=== PATIENT | male | born 1945 ===

== ENCOUNTER 2019-02-19 10:27 | Day surgery (SDC) | payer MEDICARE, OTHER ==
[~2019-02-19] VITALS: Ht 176.5 cm; Wt 125.6 kg
[~2019-02-19 10:27] MED LIST: PRED20TA PO
[2019-02-19] MEDS ORDERED: diphenhydrAMINE 25mg capsule PO ONE (10:55)
[2019-02-19] MEDS ORDERED: normal saline 1000ml 1,000 ML IV SCH (10:55)
[2019-02-19] MEDS ORDERED: EZET10TA48 PO (11:33)
[2019-02-19] MEDS ORDERED: CLOP75TA35 PO (11:33)
[2019-02-19] MEDS ORDERED: LIRA0.6P SUBCUT (11:33)
[2019-02-19] MEDS ORDERED: METF750T46 PO (11:33)
[2019-02-19] MEDS ORDERED: METO-411 PO (11:33)
[2019-02-19] MEDS ORDERED: ATOR40TA72 PO (11:33)
[2019-02-19] MEDS ORDERED: NITR0.4T48 SL (11:33)
[2019-02-19 12:00] LABS: BASOPHILS # (AUTO) 0.1 X10'3 (0-0.2); BASOPHILS % (AUTO) 0.8 % (0-1); EOSINOPHILS # (AUTO) 0.4 X10'3 (0-0.9); EOSINOPHILS % (AUTO) 3.8 % (0-6); HEMATOCRIT 45.7 % (42.0-52.0); HEMOGLOBIN 15.8 g/dl (14.0-17.9); LYMPHOCYTES # (AUTO) 2.2 X10'3 (1.1-4.8); LYMPHOCYTES % (AUTO) 20.9 % (21-51); MEAN CORPUSCULAR HEMOGLOBIN 31.6 PG (27.0-31.0); MEAN CORPUSCULAR HGB CONC 34.6 g/dL (33.0-36.5); MEAN CORPUSCULAR VOLUME 91.5 FL (78-98); MONOCYTES % (AUTO) 9.3 % (2-12); NEUTROPHILS # (AUTO) 6.9 X10'3 (1.8-7.7); NEUTROPHILS % (AUTO) 65.2 % (42-75); PLATELET COUNT 307 X10'3 (140-440); RED CELL DISTRIBUTION WIDTH 13.4 % (11.5-14.5); WHITE BLOOD COUNT 10.6 X10'3 (4.5-11.0)
[2019-02-19] MEDS ORDERED: fentaNYL/PF 50MCG/1 ML 2ML syringe ONE ×2 (12:03→13:33)
[2019-02-19] MEDS ORDERED: iohexol 350MG/ML 100ml bottle IV ONE ×4 (12:03→14:20)
[2019-02-19] MEDS ORDERED: midazolam 2 mg/2 ml injection ONE ×4 (12:03→14:17)
[2019-02-19] MEDS ORDERED: iohexol 350 MG/ML 50ML vial IV ONE (12:03)
[2019-02-19] MEDS ORDERED: LIDOcaine 1% (10mg/ml)w/preservative injection 20ml MDV ONE ×2 (12:03→13:32)
[2019-02-19 12:09] LABS: ALBUMIN 3.5 G/DL (3.4-5.0); ANION GAP 8 (8-16); BLOOD UREA NITROGEN 11 MG/DL (7-18); BUN/CREATININE RATIO 10.6 (5.4-32.0); CALCIUM 8.3 MG/DL (8.5-10.1); CHLORIDE 104 MMOL/L (99-107); CREATININE 1.04 MG/DL (0.60-1.10); GLUCOSE 136 MG/DL (70-104); MAGNESIUM 1.8 MG/DL (1.5-2.4); SODIUM 138 MMOL/L (135-145); TOTAL CARBON DIOXIDE 26.2 MMOL/L (24-32); eGFR 70 ML/MIN
[2019-02-19] MEDS ORDERED: heparin 1,000unit/ml 10ml vial 10 ML ONE ×2 (12:49→13:46)
[2019-02-19] MEDS ORDERED: nitroGLYCERIN 0.4mg SUBLingual tab SL ONE (13:25)
[2019-02-19] MEDS ORDERED: iohexol 350 MG/1 ML 200ml bottle ONE (13:32)
[2019-02-19] MEDS ORDERED: ondansetron/PF 4mg/2ml inj ONE (13:35)
[2019-02-19] MEDS ORDERED: tirofiban 5mg in NS 100mL 100 ML IV ONE (14:13)
[2019-02-19] MEDS ORDERED: clopidogrel 300mg tablet ONE (14:48)
[2019-02-19 15:00] VITALS: BP 130/85
[2019-02-19 15:15] VITALS: BP 105/69
--- NOTE | 2019-02-19 15:19 | NUR ---
Patient back from OR via gurney. VSS, denies any cp or sob at this time. Right groin with Perclose. Groin soft without hematoma or bleeding. Bilat pedal pulses palpable and strong. Aggrastat running from OR until empty. NS @200 x 4 hrs per orders.
[2019-02-19 15:30] VITALS: BP 131/79
[2019-02-19] MEDS ORDERED: normal saline 1000ml 1,000 ML IV ONE (15:30)
[2019-02-19 16:00] VITALS: BP 145/61
[2019-02-19 16:30] VITALS: BP 129/81
== END 2019-02-19 17:30 | disposition home or self-care (01) ==
LOC: SSTAY O 10:27
PROVIDERS: ATTEND Internal Medicine Cardiovascular Disease
DX: R94.39 Abnormal result of other cardiovascular function study (principal); I25.10 Atherosclerotic heart disease of native coronary artery without angina pectoris; E78.5 Hyperlipidemia, unspecified; E11.9 Type 2 diabetes mellitus without complications; Z87.891 Personal history of nicotine dependence; Z88.2 Allergy status to sulfonamides; Z88.5 Allergy status to narcotic agent; Z88.8 Allergy status to other drugs, medicaments and biological substances; Z79.82 Long term (current) use of aspirin; Z79.01 Long term (current) use of anticoagulants; Z79.84 Long term (current) use of oral hypoglycemic drugs; Z79.899 Other long term (current) drug therapy
CPT/HCPCS: 36415; 80048; 83735; 85025; 85610; 93005; 93458; 99152; 99153; C1725; C1769; C1874; C1894; C9600; J1644; J2001; J2250; J2405; J3010; J3246; J7030; Q0163; Q9967; 92924; 92929; A4620; A6258; C1760